=== PATIENT | male | born 2000 | race Caucasian/White ===

== ENCOUNTER 2021-07-01 08:59 | Emergency (ER) | payer BC ==
[2021-07-01 09:04] VITALS: BP 141/95; PULSE 85; RESP 16; TEMP 98.4
[2021-07-01] MEDS ORDERED: KETOROLAC 15 MG/ML 1 ML VIAL IM STA (09:48)
[2021-07-01] MEDS ORDERED: methylPREDNISolone SOD SUCCI 125 MG/2 ML VIAL IM ONE (09:48)
--- NOTE | 2021-07-01 10:42 | ED ---
ENT HPI - General Chief complaint: ENT Stated complaint: Sore Throat Time Seen by Provider: 07/01/21 09:09 Source: patient, RN notes reviewed Mode of arrival: ambulatory Limitations: no limitations - History of Present Illness Initial comments: Patient is a 21-year-old male that presents to emergency department with sore throat for the last 12 days. He notes that this morning and progressively got worse the point were was difficult to swallow due to pain. He denied any other issues or complaints. He was otherwise well-appearing. He notes he came in for evaluation due to concerns with swallowing. Patient denied chest pain shortness breath headache nausea vomiting diarrhea constipation fever fatigue chills. - Related Data Previous Rx's Medication Instructions Recorded Penicillin V Potassium [Pen Vee K] 500 mg PO QID #40 tablet 07/01/21 Allergies Allergy/AdvReac Type Severity Reaction Status Date / Time No Known Allergies Allergy Verified 07/01/21 09:04 Review of Systems ROS Statement: Those systems with pertinent positive or pertinent negative responses have been documented in the HPI. ROS Other: All systems not noted in ROS Statement are negative. Past Medical History Past Medical History: No Reported History History of Any Multi-Drug Resistant Organisms: None Reported Past Surgical History: Appendectomy, Orthopedic Surgery Additional Past Surgical History / Comment(s): right ankle Past Psychological History: No Psychological Hx Reported Smoking Status: Never smoker Past Alcohol Use History: None Reported Past Drug Use History: None Reported General Exam Limitations: no limitations General appearance: alert, in no apparent distress Head exam: Present: atraumatic, normocephalic, normal inspection Eye exam: Present: normal appearance, PERRL, EOMI. Absent: scleral icterus, conjunctival injection, periorbital swelling ENT exam: Present: normal exam, mucous membranes moist. Absent: normal oropharynx (Erythematous tonsils, white exudate on the right side.) Neck exam: Present: normal inspection. Absent: tenderness, lymphadenopathy Respiratory exam: Present: normal lung sounds bilaterally. Absent: respiratory distress, wheezes, rales, rhonchi, stridor Cardiovascular Exam: Present: regular rate, normal rhythm, normal heart sounds. Absent: systolic murmur, diastolic murmur, rubs, gallop, clicks Extremities exam: Present: normal inspection, full ROM, normal capillary refill. Absent: tenderness, pedal edema, joint swelling, calf tenderness Neurological exam: Present: alert, oriented X3 Psychiatric exam: Present: normal affect, normal mood Skin exam: Present: warm, dry, intact, normal color. Absent: rash Course Vital Signs 07/01/21 09:01 Temperature 98.4 F Pulse Rate 85 Respiratory 16 Rate Blood Pressure 141/95 O2 Sat by Pulse 97 Oximetry Medical Decision Making - Medical Decision Making 21-year-old male complaining of sore throat for the past several days. Strep test, 15 g Toradol, 125 mg Solu-Medrol ordered. Strep test positive. Patient will be sent antibiotics was worse. Case discussed with Dr. Lemus, patient discharge home. - Lab Data Lab Results 07/01/21 Range/Units 09:49 Group A Strep Rapid Positive A (Negative) Disposition Clinical Impression: Strep pharyngitis Disposition: HOME SELF-CARE Condition: Stable Instructions (If sedation given, give patient instructions): Strep Throat (ED) Additional Instructions: Please return to the Emergency Department if symptoms worsen or any other concerns. Follow-up with primary care 1-2 days. Take antibiotics as prescribed until complete. Use Motrin as needed for pain. Prescriptions: Penicillin V Potassium [Pen Vee K] 500 mg PO QID #40 tablet Is patient prescribed a controlled substance at d/c from ED?: No Referrals: Kim Solis MD [Primary Care Provider] - 1-2 days Time of Disposition: 10:41
== END 2021-07-01 11:01 | disposition home or self-care (01) ==
LOC: EC 08:59
DX: J02.0 Streptococcal pharyngitis (principal)
CPT/HCPCS: 99283; 87430; 96372; J2930; J1885